=== PATIENT | female | born 1950 | race Caucasian/White ===

== ENCOUNTER 2016-11-18 10:17 | Emergency (ER) | payer OTHER ==
[2016-11-18 10:20] VITALS: BMI 35.2
--- NOTE | 2016-11-18 11:18 | PDOC ---
History of Present Illness - General Chief Complaint: Pain Stated Complaint: ABD PAIN Time Seen by Provider: 11/18/16 11:10 History Source: Patient Exam Limitations: No Limitations - History of Present Illness Initial Comments: 11/18/16 11:18 CHIEF COMPLAINT: Abdominal pain HISTORY OF PRESENT ILLNESS: This is a 66 year old female with no significant medical history who presents for evaluation of abdominal pain. She has been having left lower abdominal pain intermittently for about 3 weeks, and it became much worse today. She has been having chills. She denies nausea/vomiting/ diarrhea/constipation, dysuria, rectal bleeding, or any other symptoms. Vital signs on arrival are unremarkable. Patient does not currently follow with a PCP. REVIEW OF SYSTEMS: GENERAL/CONSTITUTIONAL: Chills, no fever. No weakness. No weight change. HEAD, EYES, EARS, NOSE AND THROAT: No change in vision. No ear pain or discharge. No sore throat. CARDIOVASCULAR: No chest pain or palpitations. RESPIRATORY: No cough, wheezing, or shortness of breath. GASTROINTESTINAL: See HPI GENITOURINARY: No dysuria, frequency, or change in urination. MUSCULOSKELETAL: No joint or muscle swelling or pain. No neck or back pain. SKIN: No rash or easy bruising. NEUROLOGIC: No headache, vertigo, loss of consciousness, or loss of sensation. PSYCHIATRIC: No depression or anxiety. ENDOCRINE: No increased thirst. No abnormal weight change. HEMATOLOGIC/LYMPHATIC: No anemia, easy bleeding, or history of blood clots. ALLERGIC/IMMUNOLOGIC: No hives or skin allergy. No latex allergy. PHYSICAL EXAM: GENERAL: The patient is awake, alert, and fully oriented, in no acute distress. ENT: Pupils equal, round and reactive to light, extraocular movements intact, sclera anicteric, conjunctiva clear. Neck supple. LUNGS: Clear to auscultation bilaterally. Normal excursion. No respiratory distress or use of accessory muscles. CV: RRR, S1/S2, no MRG. Cap refill < 2 sec. ABDOMEN: Soft, non-distended, tender to gentle palpation in LLQ. EXTREMITIES: Normal range of motion, no edema. NEUROLOGICAL: Normal speech, normal gait. CN II-XII grossly intact. PSYCH: Normal mood, normal affect. SKIN: Warm, dry, normal turgor, no rashes or lesions noted. Past History - Past Medical History Allergies/Adverse Reactions: Allergies Allergy/AdvReac Type Severity Reaction Status Date / Time No Known Allergies Allergy Verified 11/18/16 10:20 Home Medications: Ambulatory Orders NK [No Known Home Medication] 11/18/16 CVA: Yes Liver Disease: Yes (inflammed) Psychiatric Problems: Yes (forgetfulness) Other medical history: on neurontin - Psycho/Social/Smoking Cessation Hx Suicidal Ideation: No Smoking History: Never smoked Information on smoking cessation initiated: No Hx Alcohol Use: No Drug/Substance Use Hx: No Substance Use Type: None *Physical Exam - Vital Signs Last Vital Signs Temp Pulse Resp BP Pulse Ox 97.5 F L 70 17 127/74 97 11/18/16 10:18 11/18/16 10:18 11/18/16 10:18 11/18/16 10:18 11/18/16 10:18 ED Treatment Course - LABORATORY CBC & Chemistry Diagram: 11/18/16 11:50 11/18/16 11:50 Medical Decision Making - Medical Decision Making 11/18/16 13:12 A/P: 66 year old female with LLQ pain. 1. EKG 2. Cardiac and abdominal labs 3. CTAP with PO/IV contrast to rule out diverticulitis, abscess, perforation 4. Morphine 4mg IVP for pain 5. Reassess 11/18/16 13:41 WBC within normal limits at 8.4 AST/ALT mildly elevated at 44/110 Trace leukesterase; culture sent 11/18/16 15:18 CT reviewed and interpreted by radiology: there is diverticulitis of the sigmoid colon without perforation or abscess formation. Will treat with Levaquin/Flagyl and dc with close outpatient followup. Return precautions reviewed. *DC/Admit/Observation/Transfer Diagnosis at time of Disposition: Diverticulitis of intestine Qualifiers: Diverticulitis site: large intestine Diverticulitis bleeding: without bleeding Diverticulitis complication: without perforation or abscess Qualified Code(s): K57.32 - Diverticulitis of large intestine without perforation or abscess without bleeding - Discharge Dispostion Disposition: HOME Condition at time of disposition: Stable Admit: No - Referrals Referrals: Karon Caba MD [Staff Physician] - Call tomorrow (Train Dispatcher) Fozia Ruiz MD [Staff Physician] - Call tomorrow (Primary care) - Patient Instructions Printed Discharge Instructions: DI for Diverticulitis Additional Instructions: -Eat a liquid diet today and slowly start eating food again as you are feeling better -Take Levaquin and Flagyl (two antibiotics) as prescribed -Follow up with the registered dental assistant and a primary care doctor this week - referral enclosed -Return here for fevers, worsening abdominal pain, inability to keep down fluids , or any other concerning symptoms Print Language: MAORI
[2016-11-18 12:02] LABS: URINE APPEARANCE CLEAR; URINE BILIRUBIN NEGATIVE (NEGATIVE); URINE BLOOD NEGATIVE (NEGATIVE); URINE COLOR DKYELLOW; URINE GLUCOSE (UA) NEGATIVE (NEGATIVE); URINE KETONE NEGATIVE (NEGATIVE); URINE NITRITE NEGATIVE (NEGATIVE); URINE UROBILINOGEN NEGATIVE E.U./dl (0.2-1.0)
[2016-11-18 12:21] LABS: INR 1.14 (0.82-1.09); PROTHROMBIN TIME (PATIENT) 12.6 SEC (9.98-11.88)
[2016-11-18 12:29] LABS: ALBUMIN 3.8 g/dl (3.4-5.0); ANION GAP 8 (8-16); CALCIUM 9.9 mg/dL (8.5-10.1); CO2 31 mmol/L (21-32); COCKROFT - GAULT 104.6435; CREATININE 0.7 mg/dL (0.55-1.02); GLUCOSE,RANDOM 182 mg/dL (74-106); SGOT/AST 44 U/L (15-37); SGPT/ALT 110 U/L (12-78)
[2016-11-18 12:30] LABS: ALK PHOS 68 U/L (45-117); BILIRUBIN,TOTAL 0.6 mg/dL (0.2-1.0); TOT PROT 8.4 g/dl (6.4-8.2); TROPONIN I < 0.02 ng/ml (0.00-0.05)
--- NOTE | 2016-11-18 12:34 | PDOC ---
*Physical Exam - Vital Signs Last Vital Signs Temp Pulse Resp BP Pulse Ox 97.5 F L 70 17 127/74 97 11/18/16 10:18 11/18/16 10:18 11/18/16 10:18 11/18/16 10:18 11/18/16 10:18 - Physical Exam General Appearance: Yes: Nourished HEENT: positive: Normal ENT Inspection Neck: positive: Trachea midline Respiratory/Chest: positive: Lungs Clear, Normal Breath Sounds Cardiovascular: positive: Regular Rhythm, Regular Rate, S1, S2. negative: Edema Gastrointestinal/Abdominal: positive: Normal Bowel Sounds, Tender (llq ttp), Flat, Soft Musculoskeletal: positive: Normal Inspection. negative: CVA Tenderness Extremity: positive: Normal Capillary Refill Integumentary: positive: Normal Color, Dry, Warm Neurologic: positive: Fully Oriented, Alert, Normal Mood/Affect, Motor Strength 11/08 ED Treatment Course - LABORATORY CBC & Chemistry Diagram: 11/18/16 11:50 11/18/16 11:50 Medical Decision Making - Medical Decision Making 11/18/16 12:31 66 yo F w with left lower quadrant pain, no n/v //f/c. had bm last pm was normal. no urinary complaints. on exam llq ttp, general NAD. lungs CTAB no wheeze no crackles. cardiac RRR no m /r/g. abd soft llq ttp. no rebound no guarding. ext WWP . differential: colitis, diverticulitis, uti pyelo, constipation. mass. plan ct a/ p labs ua iv hydration and pain control. reassess. seen and examined wt angelina WILKINS, agree with plan. 12/25/16 10:33 *DC/Admit/Observation/Transfer Diagnosis at time of Disposition: Diverticulitis Qualifiers: Diverticulitis site: large intestine Diverticulitis bleeding: without bleeding Diverticulitis complication: without perforation or abscess Qualified Code(s): K57.32 - Diverticulitis of large intestine without perforation or abscess without bleeding - Discharge Dispostion Disposition: HOME - Prescriptions Prescriptions: Metronidazole [Flagyl -] 500 mg PO Q6H #28 tablet Levofloxacin [Levaquin] 750 mg PO DAILY #7 tab - Referrals Referrals: Fozia Ruiz MD [Staff Physician] - Call tomorrow (Primary care) Karon Caba MD [Staff Physician] - Call tomorrow (Civil Cadd Technician) - Patient Instructions Printed Discharge Instructions: DI for Diverticulitis Additional Instructions: -Eat a liquid diet today and slowly start eating food again as you are feeling better -Take Levaquin and Flagyl (two antibiotics) as prescribed -Follow up with the after school program coordinator and a primary care doctor this week - referral enclosed -Return here for fevers, worsening abdominal pain, inability to keep down fluids , or any other concerning symptoms Print Language: SLOVENIAN
[2016-11-18 12:35] LABS: BASOPHIL 0.6 % (0-2.0); EOSINOPHIL 1.1 % (0-4.5); MCH 27.9 pg (25.7-33.7); MCHC 33.2 g/dl (32.0-36.0); MEAN CELL VOLUME 84.1 fl (80-96); MEAN PLT VOLUME 8.1 fl (7.5-11.1); NEUTROPHILS 54.5 % (42.8-82.8); PLATELET COUNT 293 K/MM3 (134-434); RDW 14.6 % (11.6-15.6); WHITE BLOOD COUNT 8.4 K/mm3 (4.0-10.0)
[2016-11-18 12:47] LABS: URINE LEUK ESTERASE TRACE (NEGATIVE); URINE PROTEIN 1+ (NEGATIVE)
[2016-11-18] MEDS ORDERED: morphine CARPU-JECT 4 MG/1 ML DISP.SYRIN IVPUSH ONE (13:12)
[2016-11-18] MEDS ORDERED: morphine CARPU-JECT 4 MG/1 ML DISP.SYRIN ONE (13:27)
[2016-11-18] MEDS ORDERED: SODIUM CHLORIDE 1,000 ML IV SCH (13:45)
--- NOTE | 2016-11-18 14:07 | EKG ---
Test Reason : Blood Pressure : / mmHG Vent. Rate : 066 BPM Atrial Rate : 066 BPM P-R Int : 176 ms QRS Dur : 078 ms QT Int : 428 ms P-R-T Axes : 043 -11 -01 degrees QTc Int : 448 ms NORMAL SINUS RHYTHM NORMAL ECG NO PREVIOUS ECGS AVAILABLE Confirmed by CECY OLIVAS MD ([id number]) on 11/18/2016 2:06:47 PM Referred By: Confirmed By:CECY OLIVAS MD
[2016-11-18 14:51] LABS: URINE MUCUS FEW; URINE RBC 1 /hpf (0-3); URINE WBC 8 /hpf (3-5)
[2016-11-18] MEDS ORDERED: LEVOFLOXACIN 250 MG TABLET (FP) PO ONE (15:18)
[2016-11-18] MEDS ORDERED: metroNIDAZOLE 500 MG TABLET PO ONE (15:18)
[2016-11-18] MEDS ORDERED: LEVOFLOXACIN 500 MG TABLET (FP) ONE (15:33)
[2016-11-18] MEDS ORDERED: metroNIDAZOLE 250 MG TABLET ONE (15:33)
[2016-11-18] MEDS ORDERED: LEVOFLOXACIN 250 MG TABLET (FP) ONE (15:33)
[2016-11-18 16:09] VITALS: BP 102/68; PULSE 69; TEMP 97.8
== END 2016-11-18 16:09 | disposition home or self-care (01) ==
LOC: JER 10:17
PROC: 3E0337Z Introduction of Electrolytic and Water Balance Substance into Peripheral Vein, Percutaneous Approach (ICD-10-PCS; principal; 2016-11-18)
PROC: 3E033NZ Introduction of Analgesics, Hypnotics, Sedatives into Peripheral Vein, Percutaneous Approach (ICD-10-PCS; 2016-11-18)
DX: K57.20 Diverticulitis of large intestine with perforation and abscess without bleeding (principal); Z86.73 Personal history of transient ischemic attack (TIA), and cerebral infarction without residual deficits
CPT/HCPCS: 36415; 74177-TC; 80053; 81003; 81015; 82550; 83690; 84484; 85025; 85610; 87086; 87186; 93005; 93010; 96361; 96374; 99284-25; Q9967

== ENCOUNTER 2020-07-18 16:56 | Inpatient (IN) | payer OTHER ==
[2020-07-18] MEDS ORDERED: ACETAMINOPHEN 325 MG TABLET (FP) PO ONE (18:29)
[2020-07-18] MEDS ORDERED: SODIUM CHLORIDE 1,000 ML IV STA (18:29)
[2020-07-18 18:38] LABS: PH,URINE 5.5 (5.0-8.0); URINE APPEARANCE Clear; URINE BILIRUBIN Negative (NEGATIVE); URINE COLOR Yellow; URINE GLUCOSE (UA) Trace (NEGATIVE); URINE KETONE Trace (NEGATIVE); URINE LEUK ESTERASE Negative (NEGATIVE); URINE NITRITE Negative (NEGATIVE); URINE PROTEIN 1+ (NEGATIVE); URINE UROBILINOGEN 0.2 mg/dL (0.2-1.0)
[2020-07-18] MEDS ORDERED: ACETAMINOPHEN 325 MG TABLET (FP) ONE (18:46)
[2020-07-18 18:58] LABS: BASO % 0.5 % (0-2.0); HEMATOCRIT 43.8 % (32.4-45.2); HEMOGLOBIN 14.6 GM/dL (10.7-15.3); LYMPH % 33.2 % (8-40); MCH 27.4 pg (25.7-33.7); MCHC 33.4 g/dl (32.0-36.0); MEAN PLT VOLUME 8.6 fl (7.5-11.1); MONO % 8.9 % (3.8-10.2); NEUT % 57.4 % (42.8-82.8); PLATELET COUNT 227 K/MM3 (134-434); RBC 5.33 M/mm3 (3.60-5.2); RDW 13.7 % (11.6-15.6); WHITE BLOOD COUNT 5.8 K/mm3 (4.0-10.0)
[2020-07-18 19:14] LABS: CHLORIDE 99 mmol/L (98-107); POTASSIUM 4.6 mmol/L (3.5-5.1); SODIUM 131 mmol/L (136-145)
[2020-07-18 19:16] LABS: CALCIUM 8.9 mg/dL (8.5-10.1)
[2020-07-18 19:17] LABS: ALBUMIN 3.3 g/dl (3.4-5.0); ANION GAP 6 MMOL/L (8-16); CO2 27 mmol/L (21-32); GLUCOSE,RANDOM 182 mg/dL (74-106)
[2020-07-18 19:20] LABS: BILIRUBIN,TOTAL 0.4 mg/dL (0.2-1); CREATININE 0.7 mg/dL (0.55-1.3); SGOT/AST 121 U/L (15-37); SGPT/ALT 130 U/L (13-61); TOT PROT 7.9 g/dl (6.4-8.2)
[2020-07-18 19:23] LABS: ALK PHOS 59 U/L (45-117)
[2020-07-18 20:02] LABS: URINE BACTERIA FEW /hpf (NEGATIVE); URINE RBC 0-3 /uL (0-23.9); URINE WBC 0-3 /uL (0-25.8)
[2020-07-18] MEDS ORDERED: BAMLANIVIMAB 700 MG in SODIUM CHLORIDE 180 ML IVPB ONE (21:30)
[2020-07-18] MEDS ORDERED: PT OWN MED DRAWER 7, Y5N ONE (22:51)
[2020-07-19] MEDS ORDERED: DEXAMETHASONE SOD PHOSPHATE 4 MG/1 ML VIAL IVPUSH ONE (04:16)
[2020-07-19] MEDS ORDERED: ACETAMINOPHEN 325 MG TABLET (FP) PO PRN (04:51)
[2020-07-19] MEDS ORDERED: SODIUM CHLORIDE 1,000 ML IV SCH (05:00)
[2020-07-19] MEDS ORDERED: CIPROFLOXACIN 500 MG TABLET (RESTRICTED TO ID) PO SCH ×3 (05:21→10:00)
[2020-07-19] MEDS ORDERED: DEXAMETHASONE SOD PHOSPHATE 10 MG/1 ML VIAL ONE (05:55)
[2020-07-19] MEDS ORDERED: metroNIDAZOLE 250 MG TABLET ONE (05:55)
[2020-07-19] MEDS ORDERED: HEPARIN NA (PORCINE) 5,000 UNITS/ML 1ML VIAL SQ SCH (06:00)
[2020-07-19] MEDS ORDERED: metroNIDAZOLE 250 MG TABLET PO SCH (06:00)
[2020-07-19 07:52] LABS: BASO % 0.3 % (0-2.0); HEMOGLOBIN 14.1 GM/dL (10.7-15.3); LYMPH % 14.3 % (8-40); MCHC 32.9 g/dl (32.0-36.0); MEAN CELL VOLUME 82.1 fl (80-96); MEAN PLT VOLUME 8.9 fl (7.5-11.1); MONO % 7.1 % (3.8-10.2); NEUT % 78.3 % (42.8-82.8); PLATELET COUNT 201 K/MM3 (134-434); RBC 5.23 M/mm3 (3.60-5.2); RDW 13.6 % (11.6-15.6); WHITE BLOOD COUNT 7.4 K/mm3 (4.0-10.0)
[2020-07-19 08:07] LABS: CHLORIDE 101 mmol/L (98-107); POTASSIUM 3.8 mmol/L (3.5-5.1); SODIUM 133 mmol/L (136-145)
[2020-07-19 08:10] LABS: CALCIUM 8.6 mg/dL (8.5-10.1)
[2020-07-19 08:11] LABS: ALBUMIN 3.2 g/dl (3.4-5.0); ANION GAP 8 MMOL/L (8-16); BLOOD UREA NITROGEN 8.3 mg/dL (7-18); CO2 24 mmol/L (21-32); GLUCOSE,RANDOM 133 mg/dL (74-106); MAGNESIUM 1.9 mg/dL (1.8-2.4)
[2020-07-19 08:13] LABS: CREATININE 0.5 mg/dL (0.55-1.3)
[2020-07-19 08:14] LABS: PHOSPHOROUS 2.3 mg/dL (2.5-4.9); SGOT/AST 84 U/L (15-37); SGPT/ALT 112 U/L (13-61)
[2020-07-19 08:15] LABS: BILIRUBIN,TOTAL 0.4 mg/dL (0.2-1); TOT PROT 7.5 g/dl (6.4-8.2)
[2020-07-19 08:16] LABS: ALK PHOS 60 U/L (45-117)
[2020-07-19 08:18] LABS: LDH 266 U/L (84-246)
[2020-07-19] MEDS ORDERED: ASCORBIC ACID 500 MG TABLET (FP) ONE (09:55)
[2020-07-19] MEDS ORDERED: CHOLECALCIFEROL (VIT D3) 1,000 UNIT (25 MCG) TABLET ONE (09:56)
[2020-07-19] MEDS ORDERED: ZINC SULFATE 220 MG CAPSULE (FP) ONE (09:56)
[2020-07-19] MEDS: ASCORBIC ACID 500 MG TABLET (FP) PO SCH ×2 (10:17→21:02)
[2020-07-19] MEDS: ZINC SULFATE 220 MG CAPSULE (FP) PO SCH (10:17)
[2020-07-19] MEDS: CHOLECALCIFEROL (VIT D3) 400 UNIT (10 MCG) TABLET PO SCH (10:17)
[2020-07-19] MEDS: APIXABAN 5 MG TABLET PO SCH ×2 (12:26→21:02)
[2020-07-19 12:47] VITALS: BMI 33.0
[2020-07-19] MEDS ORDERED: NAPH,MB-DB/K PH,MBDB POWDER PACKET PO ONE (15:40)
[2020-07-20 07:45] LABS: BASO % 0.2 % (0-2.0); HEMATOCRIT 40.6 % (32.4-45.2); HEMOGLOBIN 13.9 GM/dL (10.7-15.3); LYMPH % 31.6 % (8-40); MCH 27.8 pg (25.7-33.7); MCHC 34.2 g/dl (32.0-36.0); MEAN CELL VOLUME 81.2 fl (80-96); MEAN PLT VOLUME 8.3 fl (7.5-11.1); NEUT % 57.2 % (42.8-82.8); PLATELET COUNT 224 K/MM3 (134-434); RDW 13.5 % (11.6-15.6); WHITE BLOOD COUNT 4.9 K/mm3 (4.0-10.0)
[2020-07-20 08:00] LABS: POTASSIUM 3.8 mmol/L (3.5-5.1)
[2020-07-20 08:03] LABS: BLOOD UREA NITROGEN 10.8 mg/dL (7-18); MAGNESIUM 2.1 mg/dL (1.8-2.4)
[2020-07-20 08:04] LABS: CREATININE 0.6 mg/dL (0.55-1.3)
[2020-07-20 08:05] LABS: PHOSPHOROUS 3.2 mg/dL (2.5-4.9)
[2020-07-20 08:07] LABS: BILIRUBIN,TOTAL 0.4 mg/dL (0.2-1); TOT PROT 7.2 g/dl (6.4-8.2)
[2020-07-20] MEDS: CHOLECALCIFEROL (VIT D3) 400 UNIT (10 MCG) TABLET PO SCH (09:40)
[2020-07-20] MEDS: ZINC SULFATE 220 MG CAPSULE (FP) PO SCH (09:41)
[2020-07-20] MEDS: APIXABAN 5 MG TABLET PO SCH ×2 (09:41→21:25)
[2020-07-20] MEDS: ASCORBIC ACID 500 MG TABLET (FP) PO SCH ×2 (09:41→21:25)
[2020-07-20] MEDS ORDERED: PNEUMOC 13-VAL CONJ-DIP CRM/PF 0.5 ML DISP.SYRIN IM ONE (10:00)
[2020-07-20] MEDS ORDERED: DEXAMETHASONE SOD PHOSPHATE 4 MG/1 ML VIAL IVPUSH ONE (10:00)
[2020-07-20] MEDS ORDERED: FLU VACCINE (FLULAVAL) PF 60 MCG/0.5 ML SYRINGE 2020-2021 IM ONE (10:00)
[2020-07-20] MEDS: INSULIN SLIDING SCALE (NOVOLOG) 1 VIAL SQ SCH ×2 (16:51→21:32)
[2020-07-21] MEDS: INSULIN SLIDING SCALE (NOVOLOG) 1 VIAL SQ SCH ×4 (06:36→21:03)
[2020-07-21 08:08] LABS: HEMATOCRIT 41.6 % (32.4-45.2); HEMOGLOBIN 14.1 GM/dL (10.7-15.3); MCH 27.4 pg (25.7-33.7); MCHC 33.9 g/dl (32.0-36.0); MEAN CELL VOLUME 80.9 fl (80-96); MEAN PLT VOLUME 8.6 fl (7.5-11.1); PLATELET COUNT 262 K/MM3 (134-434); RBC 5.14 M/mm3 (3.60-5.2); RDW 13.7 % (11.6-15.6); WHITE BLOOD COUNT 6.1 K/mm3 (4.0-10.0)
[2020-07-21 08:25] LABS: POTASSIUM 4.1 mmol/L (3.5-5.1)
[2020-07-21 08:31] LABS: CALCIUM 9.4 mg/dL (8.5-10.1); MAGNESIUM 2.1 mg/dL (1.8-2.4)
[2020-07-21 08:33] LABS: BLOOD UREA NITROGEN 14.2 mg/dL (7-18); CREATININE 0.6 mg/dL (0.55-1.3)
[2020-07-21 08:36] LABS: BILIRUBIN,TOTAL 0.6 mg/dL (0.2-1)
[2020-07-21] MEDS: DEXAMETHASONE SOD PHOSPHATE 4 MG/1 ML VIAL IVPUSH SCH (09:41)
[2020-07-21] MEDS: ASCORBIC ACID 500 MG TABLET (FP) PO SCH ×2 (09:43→20:59)
[2020-07-21] MEDS: APIXABAN 5 MG TABLET PO SCH (09:43)
[2020-07-21] MEDS: CHOLECALCIFEROL (VIT D3) 400 UNIT (10 MCG) TABLET PO SCH (09:44)
[2020-07-21] MEDS: ZINC SULFATE 220 MG CAPSULE (FP) PO SCH (09:44)
[2020-07-21 10:18] LABS: ERYTHROCYTE SEDIMENTATION RATE 39 mm/hr (0-30)
[2020-07-21] MEDS ORDERED: REMDESIVIR 200 MG in SODIUM CHLORIDE 210 ML IVPB ONE ×2 (13:04→15:00)
[2020-07-22] MEDS: INSULIN SLIDING SCALE (NOVOLOG) 1 VIAL SQ SCH ×4 (06:10→21:30)
[2020-07-22 07:16] LABS: HEMATOCRIT 42.2 % (32.4-45.2); HEMOGLOBIN 14.1 GM/dL (10.7-15.3); MCH 27.1 pg (25.7-33.7); MCHC 33.4 g/dl (32.0-36.0); MEAN CELL VOLUME 81.2 fl (80-96); MEAN PLT VOLUME 8.3 fl (7.5-11.1); PLATELET COUNT 288 K/MM3 (134-434); RDW 13.4 % (11.6-15.6); WHITE BLOOD COUNT 6.8 K/mm3 (4.0-10.0)
[2020-07-22 07:50] LABS: POTASSIUM 3.9 mmol/L (3.5-5.1)
[2020-07-22 08:14] LABS: BLOOD UREA NITROGEN 13.4 mg/dL (7-18); CALCIUM 9.3 mg/dL (8.5-10.1); MAGNESIUM 2.1 mg/dL (1.8-2.4)
[2020-07-22 08:15] LABS: CREATININE 0.5 mg/dL (0.55-1.3)
[2020-07-22 08:17] LABS: BILIRUBIN,TOTAL 0.5 mg/dL (0.2-1); PHOSPHOROUS 3.2 mg/dL (2.5-4.9)
[2020-07-22 09:08] LABS: ERYTHROCYTE SEDIMENTATION RATE 30 mm/hr (0-30)
[2020-07-22] MEDS: ENOXAPARIN NA (PORCINE) 40 MG/0.4 ML DISP.SYRIN SQ SCH (09:49)
[2020-07-22] MEDS: ASCORBIC ACID 500 MG TABLET (FP) PO SCH ×2 (09:49→21:28)
[2020-07-22] MEDS: CHOLECALCIFEROL (VIT D3) 400 UNIT (10 MCG) TABLET PO SCH (09:49)
[2020-07-22] MEDS: ZINC SULFATE 220 MG CAPSULE (FP) PO SCH (09:50)
[2020-07-22] MEDS: DEXAMETHASONE SOD PHOSPHATE 4 MG/1 ML VIAL IVPUSH SCH (09:50)
[2020-07-22] MEDS: REMDESIVIR 100 MG in SODIUM CHLORIDE 230 ML IVPB SCH (14:49)
[2020-07-22] MEDS ORDERED: REMDESIVIR 100 MG in SODIUM CHLORIDE 230 ML IVPB SCH (15:00)
[2020-07-23] MEDS: INSULIN SLIDING SCALE (NOVOLOG) 1 VIAL SQ SCH ×4 (06:06→21:48)
[2020-07-23 08:47] LABS: BASO % 0.5 % (0-2.0); HEMOGLOBIN 15.4 GM/dL (10.7-15.3); LYMPH % 40.3 % (8-40); MCH 27.8 pg (25.7-33.7); MCHC 34.1 g/dl (32.0-36.0); MEAN CELL VOLUME 81.5 fl (80-96); MEAN PLT VOLUME 8.5 fl (7.5-11.1); MONO % 9.7 % (3.8-10.2); NEUT % 49.5 % (42.8-82.8); PLATELET COUNT 343 K/MM3 (134-434); RBC 5.52 M/mm3 (3.60-5.2); RDW 13.5 % (11.6-15.6)
[2020-07-23 09:08] LABS: POTASSIUM 4.1 mmol/L (3.5-5.1)
[2020-07-23 09:09] LABS: CALCIUM 9.2 mg/dL (8.5-10.1)
[2020-07-23 09:10] LABS: ALBUMIN 3.3 g/dl (3.4-5.0); BLOOD UREA NITROGEN 16.1 mg/dL (7-18)
[2020-07-23 09:13] LABS: CREATININE 0.7 mg/dL (0.55-1.3)
[2020-07-23 09:15] LABS: BILIRUBIN,TOTAL 0.3 mg/dL (0.2-1); TOT PROT 7.8 g/dl (6.4-8.2)
[2020-07-23] MEDS: ASCORBIC ACID 500 MG TABLET (FP) PO SCH ×2 (10:44→21:48)
[2020-07-23] MEDS: CHOLECALCIFEROL (VIT D3) 400 UNIT (10 MCG) TABLET PO SCH (10:44)
[2020-07-23] MEDS: DEXAMETHASONE SOD PHOSPHATE 4 MG/1 ML VIAL IVPUSH SCH (10:44)
[2020-07-23] MEDS: ENOXAPARIN NA (PORCINE) 40 MG/0.4 ML DISP.SYRIN SQ SCH (10:44)
[2020-07-23] MEDS: ZINC SULFATE 220 MG CAPSULE (FP) PO SCH (10:44)
[2020-07-23] MEDS: REMDESIVIR 100 MG in SODIUM CHLORIDE 230 ML IVPB SCH (16:15)
[2020-07-23] MEDS ORDERED: INSULIN (NOVOLOG) ASPART 100 UNITS/ML 10ML VIAL ONE (21:33)
[2020-07-24] MEDS: INSULIN SLIDING SCALE (NOVOLOG) 1 VIAL SQ SCH ×4 (05:59→21:06)
[2020-07-24] MEDS: CHOLECALCIFEROL (VIT D3) 400 UNIT (10 MCG) TABLET PO SCH (10:04)
[2020-07-24] MEDS: ENOXAPARIN NA (PORCINE) 40 MG/0.4 ML DISP.SYRIN SQ SCH (10:05)
[2020-07-24] MEDS: DEXAMETHASONE SOD PHOSPHATE 4 MG/1 ML VIAL IVPUSH SCH (10:05)
[2020-07-24] MEDS: ZINC SULFATE 220 MG CAPSULE (FP) PO SCH (10:05)
[2020-07-24] MEDS: ASCORBIC ACID 500 MG TABLET (FP) PO SCH ×2 (10:05→21:05)
[2020-07-24] MEDS ORDERED: INSULIN (NOVOLOG) ASPART 100 UNITS/ML 10ML VIAL ONE (10:12)
[2020-07-24] MEDS ORDERED: DOCUSATE SODIUM 100 MG CAPSULE (FP) PO PRN (14:12)
[2020-07-24] MEDS: REMDESIVIR 100 MG in SODIUM CHLORIDE 230 ML IVPB SCH (16:13)
[2020-07-25] MEDS: INSULIN SLIDING SCALE (NOVOLOG) 1 VIAL SQ SCH ×3 (06:49→16:39)
[2020-07-25 07:55] LABS: HEMATOCRIT 42.2 % (32.4-45.2); HEMOGLOBIN 14.5 GM/dL (10.7-15.3); MCH 27.6 pg (25.7-33.7); MCHC 34.3 g/dl (32.0-36.0); MEAN CELL VOLUME 80.5 fl (80-96); MEAN PLT VOLUME 8.3 fl (7.5-11.1); PLATELET COUNT 342 K/MM3 (134-434); RBC 5.24 M/mm3 (3.60-5.2); RDW 13.5 % (11.6-15.6)
[2020-07-25 08:58] LABS: ALBUMIN 2.9 g/dl (3.4-5.0); BLOOD UREA NITROGEN 15.9 mg/dL (7-18); CALCIUM 9.1 mg/dL (8.5-10.1); MAGNESIUM 2.2 mg/dL (1.8-2.4)
[2020-07-25 09:01] LABS: CREATININE 0.6 mg/dL (0.55-1.3); PHOSPHOROUS 3.1 mg/dL (2.5-4.9)
[2020-07-25 09:03] LABS: BILIRUBIN,TOTAL 0.4 mg/dL (0.2-1); TOT PROT 6.7 g/dl (6.4-8.2)
[2020-07-25] MEDS: ENOXAPARIN NA (PORCINE) 40 MG/0.4 ML DISP.SYRIN SQ SCH (09:32)
[2020-07-25] MEDS: DEXAMETHASONE SOD PHOSPHATE 4 MG/1 ML VIAL IVPUSH SCH (09:33)
[2020-07-25] MEDS: ZINC SULFATE 220 MG CAPSULE (FP) PO SCH (09:34)
[2020-07-25] MEDS: ASCORBIC ACID 500 MG TABLET (FP) PO SCH (09:34)
[2020-07-25] MEDS: CHOLECALCIFEROL (VIT D3) 400 UNIT (10 MCG) TABLET PO SCH (09:34)
[2020-07-25 10:13] LABS: ERYTHROCYTE SEDIMENTATION RATE 48 mm/hr (0-30)
[2020-07-25 14:48] VITALS: BP 95/55; PULSE 53; TEMP 98.2
[2020-07-25] MEDS: REMDESIVIR 100 MG in SODIUM CHLORIDE 230 ML IVPB SCH (14:58)
== END 2020-07-25 19:25 | disposition home or self-care (01) | DRG 177 ==
LOC: JER 16:56 → JERBED 07-19 03:43 → J7W 07-19 10:45
PROVIDERS: ADMIT Hospitalist; ATTEND Internal Medicine
PROC: XW033F6 Introduction of Bamlanivimab Monoclonal Antibody into Peripheral Vein, Percutaneous Approach, New Technology Group 6 (ICD-10-PCS; principal; 2020-07-21)
PROC: XW033E5 Introduction of Remdesivir Anti-infective into Peripheral Vein, Percutaneous Approach, New Technology Group 5 (ICD-10-PCS; 2020-07-21)
DX: U07.1 COVID-19 (principal); J12.82 Pneumonia due to coronavirus disease 2019; J96.01 Acute respiratory failure with hypoxia; A08.39 Other viral enteritis; K57.32 Diverticulitis of large intestine without perforation or abscess without bleeding; E87.1 Hypo-osmolality and hyponatremia; E11.65 Type 2 diabetes mellitus with hyperglycemia; E66.9 Obesity, unspecified; Z68.33 Body mass index [BMI] 33.0-33.9, adult; I10 Essential (primary) hypertension; K76.89 Other specified diseases of liver; R74.01 Elevation of levels of liver transaminase levels; K57.90 Diverticulosis of intestine, part unspecified, without perforation or abscess without bleeding
CPT/HCPCS: 36415; 74177-TC; 80053; 80061; 81003; 82728; 82962; 83036; 83615; 83721; 83735; 84100; 84484; 85025; 85027; 85379; 85651; 86140; 87086; 87426; 87804; 93005; 93010; 94761; 99285-25; C9399; M0239; Q0239; Q9967

== ENCOUNTER 2024-01-07 15:12 | Inpatient (IN) | payer OTHER ==
[2024-01-07] MEDS ORDERED: ACETAMINOPHEN INJECTION 100 ML IVPB ONE (16:54)
[2024-01-07] MEDS: SODIUM CHLORIDE 1,000 ML IV STA ×2 (17:11→22:04)
[2024-01-07] MEDS: ACETAMINOPHEN 1000 MG/100 ML BAG IVPB ONE ×2 (17:11→23:16)
[2024-01-07 17:17] LABS: VENOUS BASE EXCESS -3.3 mmol/L (-2-2); VENOUS O2 SATURATION 63.5 % (70-80); VENOUS PCO2 39.5 mmHg (38-52); VENOUS PH 7.359 (7.310-7.410)
[2024-01-07 17:30] LABS: BASO % 0.4 % (0-2.0); HEMATOCRIT 43.6 % (32.4-45.2); HEMOGLOBIN 14.3 GM/dL (10.7-15.3); LYMPH % 10.1 % (8-40); MCH 27.1 pg (25.7-33.7); MCHC 32.8 g/dl (32.0-36.0); MEAN CELL VOLUME 82.7 fl (80-96); MONO % 9.5 % (3.8-10.2); PLATELET COUNT 173 10^3/uL (134-434); RBC 5.27 M/mm3 (3.60-5.2); RDW 15.1 % (11.6-15.6); WHITE BLOOD COUNT 15.2 K/mm3 (4.0-10.0)
[2024-01-07 17:35] LABS: POTASSIUM 3.9 mmol/L (3.5-5.1)
[2024-01-07 17:37] LABS: CALCIUM 9.6 mg/dL (8.5-10.1)
[2024-01-07 17:38] LABS: ALBUMIN 3.4 g/dl (3.4-5.0); BLOOD UREA NITROGEN 17.6 mg/dL (7-18); MAGNESIUM 2.2 mg/dL (1.8-2.4)
[2024-01-07 17:41] LABS: CREATININE 0.7 mg/dL (0.55-1.3)
[2024-01-07 17:43] LABS: TOT PROT 8.2 g/dl (6.4-8.2)
[2024-01-07 18:51] LABS: PH,URINE 5.5 (5.0-8.0); URINE APPEARANCE TURBID; URINE BILIRUBIN NEGATIVE (NEGATIVE); URINE COLOR YELLOW; URINE GLUCOSE (UA) 3+ (NEGATIVE); URINE KETONE 2+ (NEGATIVE); URINE LEUK ESTERASE 2+ (NEGATIVE); URINE NITRITE NEGATIVE (NEGATIVE); URINE PROTEIN 1+ (NEGATIVE); URINE UROBILINOGEN 0.2 mg/dL (0.2-1.0)
[2024-01-07 19:18] LABS: URINE RBC 44.5 /uL (0-23.9); URINE WBC 3312.9 /uL (0-25.8)
[2024-01-07 19:19] LABS: EPI CELLS NONE SEEN /uL (0-25.1); HYALINE CASTS NONE SEEN /uL (0-3.1); YEAST NONE SEEN (NEGATIVE)
[2024-01-07 21:26] LABS: LACTIC ACID 2.2 mmol/L (0.4-2.0)
[2024-01-07] MEDS: CEFTRIAXONE 1,000 MG in DEXTROSE 5%-WATER - 50 ML IVPB ONE (22:05)
[2024-01-07 22:33] LABS: LACTIC ACID 2.7 mmol/L (0.4-2.0)
[2024-01-07 23:04] VITALS: BMI 28.5
[2024-01-08] MEDS: DOXYCYCLINE INJECTION 100 MG in DEXTROSE 5%-WATER 100 ML IVPB SCH (00:23)
[2024-01-08] MEDS: SODIUM CHLORIDE 1,000 ML IV SCH ×2 (00:23→03:00)
[2024-01-08] MEDS ORDERED: methylPREDNISolone NA SUCC 40 MG/1 ML VIAL IVPUSH SCH ×2 (00:31→10:00)
[2024-01-08] MEDS: ALBUTEROL SO4 2.5/IPRATROPIUM 0.5 INH SOL 3 ML VIAL.NEB. NEB ONE (01:15)
[2024-01-08 01:23] LABS: ALLENS TEST POSITIVE; ARTERIAL BLD GAS O2 SATURATION 94.4 % (95-98); ARTERIAL BLOOD GAS BASE EXCESS -5.5 mmol/L (-2-2); ARTERIAL BLOOD GAS PO2 64.8 mmHg (80-100); ARTERIAL BLOOD GAS pH 7.472 (7.350-7.450)
[2024-01-08] MEDS: INSULIN ASPART SLIDING SCALE (NOVOLOG) 1 VIAL SQ SCH (06:13)
[2024-01-08] MEDS ORDERED: INSULIN ASPART SLIDING SCALE (NOVOLOG) 1 VIAL SQ SCH (07:00)
[2024-01-08 08:24] LABS: POTASSIUM 3.8 mmol/L (3.5-5.1)
[2024-01-08 08:27] LABS: ALBUMIN 2.8 g/dl (3.4-5.0); BASO % 0.1 % (0-2.0); BLOOD UREA NITROGEN 20.6 mg/dL (7-18); CALCIUM 9.1 mg/dL (8.5-10.1); HEMATOCRIT 38.6 % (32.4-45.2); MCH 27.6 pg (25.7-33.7); MCHC 33.7 g/dl (32.0-36.0); MEAN PLT VOLUME 8.3 fl (7.5-11.1); MONO % 8.6 % (3.8-10.2); NEUT % 81.3 % (42.8-82.8); PLATELET COUNT 170 10^3/uL (134-434); RDW 15.2 % (11.6-15.6); WHITE BLOOD COUNT 11.1 K/mm3 (4.0-10.0)
[2024-01-08 08:28] LABS: MAGNESIUM 2.1 mg/dL (1.8-2.4)
[2024-01-08 08:30] LABS: CREATININE 0.6 mg/dL (0.55-1.3); PHOSPHOROUS 3.4 mg/dL (2.5-4.9)
[2024-01-08 08:31] LABS: TOT PROT 7.1 g/dl (6.4-8.2)
[2024-01-08 08:32] LABS: BILIRUBIN,TOTAL 0.7 mg/dL (0.2-1)
[2024-01-08] MEDS ORDERED: CEFTRIAXONE 1 GM in DEXTROSE 5%-WATER - 50 ML IVPB SCH (10:00)
[2024-01-08] MEDS: ENOXAPARIN NA (PORCINE) 40 MG/0.4 ML DISP.SYRIN SQ SCH (10:01)
[2024-01-08] MEDS: CEFTRIAXONE 2 GM in DEXTROSE 5%-WATER 100 ML IVPB SCH (10:01)
[2024-01-08] MEDS: LACTATED RINGERS SOLUTION 1,000 ML/1,000 ML INFUS.BAG IV SCH (10:57)
[2024-01-08] MEDS: ACETAMINOPHEN 1000 MG/100 ML BAG IVPB PRN (11:41)
[2024-01-08] MEDS: NYSTATIN POWDER 100,000 UNITS/GM - 15 GM TOPICAL POWDER TP SCH (13:13)
[2024-01-08] MEDS: POLYETHYLENE GLYCOL (HEALTHYLAX) 3350 17 GM PACKET PO SCH (13:13)
[2024-01-08] MEDS: IBUPROFEN 600 MG TABLET (FP) PO ONE (18:42)
[2024-01-09] MEDS ORDERED: PIPERACILLIN/TAZOB 4.5 GM 4.5 GM in DEXTROSE 5%-WATER 100 ML IVPB SCH (08:45)
[2024-01-09] MEDS: PIPERACILLIN/TAZOB 4.5 GM 4.5 GM in DEXTROSE 5%-WATER 100 ML IVPB SCH (10:27)
[2024-01-09 10:30] LABS: BASO % 0.2 % (0-2.0); HEMATOCRIT 37.6 % (32.4-45.2); HEMOGLOBIN 12.9 GM/dL (10.7-15.3); LYMPH % 10.4 % (8-40); MCH 27.3 pg (25.7-33.7); MCHC 34.3 g/dl (32.0-36.0); MEAN CELL VOLUME 79.5 fl (80-96); MEAN PLT VOLUME 8.1 fl (7.5-11.1); MONO % 8.5 % (3.8-10.2); NEUT % 80.9 % (42.8-82.8); PLATELET COUNT 178 10^3/uL (134-434); RBC 4.73 M/mm3 (3.60-5.2); RDW 15.3 % (11.6-15.6)
[2024-01-09 10:53] LABS: POTASSIUM 3.2 mmol/L (3.5-5.1)
[2024-01-09 10:54] LABS: ALBUMIN 2.6 g/dl (3.4-5.0)
[2024-01-09 10:56] LABS: CALCIUM 8.9 mg/dL (8.5-10.1)
[2024-01-09 10:57] LABS: MAGNESIUM 1.8 mg/dL (1.8-2.4)
[2024-01-09 11:00] LABS: CREATININE 0.4 mg/dL (0.55-1.3); PHOSPHOROUS 1.6 mg/dL (2.5-4.9)
[2024-01-09 11:01] LABS: BILIRUBIN,TOTAL 0.6 mg/dL (0.2-1); TOT PROT 6.4 g/dl (6.4-8.2)
[2024-01-09] MEDS: NAPH,MB-DB/K PH,MBDB POWDER PACKET PO SCH (14:17)
[2024-01-09] MEDS: POTASSIUM CHLORIDE ORAL LIQUID 20 MEQ/15 ML PO ONE (14:17)
[2024-01-09] MEDS: ERTAPENEM SODIUM 1 GM in SODIUM CHLORIDE 50 ML IVPB SCH (14:17)
[2024-01-10 07:46] LABS: CALCIUM 8.6 mg/dL (8.5-10.1)
[2024-01-10 07:48] LABS: ALBUMIN 2.3 g/dl (3.4-5.0); BLOOD UREA NITROGEN 10.2 mg/dL (7-18); MAGNESIUM 1.7 mg/dL (1.8-2.4)
[2024-01-10 07:51] LABS: CREATININE 0.4 mg/dL (0.55-1.3); PHOSPHOROUS 2.1 mg/dL (2.5-4.9)
[2024-01-10 07:52] LABS: BASO % 0.2 % (0-2.0); BILIRUBIN,TOTAL 0.5 mg/dL (0.2-1); HEMATOCRIT 38.6 % (32.4-45.2); HEMOGLOBIN 13.4 GM/dL (10.7-15.3); LYMPH % 22.3 % (8-40); MCH 27.2 pg (25.7-33.7); MCHC 34.8 g/dl (32.0-36.0); MEAN CELL VOLUME 78.1 fl (80-96); MEAN PLT VOLUME 8.2 fl (7.5-11.1); MONO % 12.7 % (3.8-10.2); NEUT % 64.8 % (42.8-82.8); PLATELET COUNT 194 10^3/uL (134-434); RBC 4.95 M/mm3 (3.60-5.2); RDW 15.4 % (11.6-15.6); TOT PROT 6.1 g/dl (6.4-8.2); WHITE BLOOD COUNT 6.6 K/mm3 (4.0-10.0)
[2024-01-10 10:18] VITALS: RESP 18
[2024-01-10] MEDS: ONDANSETRON 4 MG/2 ML VIAL IVPUSH PRN (15:37)
[2024-01-11] MEDS: MAGNESIUM SULFATE IN WATER 2 GM/50 ML IVPB IVPB ONE (07:04)
[2024-01-11 08:16] LABS: BLOOD UREA NITROGEN 9.4 mg/dL (7-18); CALCIUM 8.5 mg/dL (8.5-10.1)
[2024-01-11 08:19] LABS: CREATININE 0.4 mg/dL (0.55-1.3)
[2024-01-11 08:20] LABS: PHOSPHOROUS 2.4 mg/dL (2.5-4.9)
[2024-01-11 09:04] LABS: HEMOGLOBIN 12.8 GM/dL (10.7-15.3); MCH 26.8 pg (25.7-33.7); MCHC 33.8 g/dl (32.0-36.0); MEAN CELL VOLUME 79.4 fl (80-96); MEAN PLT VOLUME 8.4 fl (7.5-11.1); PLATELET COUNT 171 10^3/uL (134-434); RBC 4.79 M/mm3 (3.60-5.2); RDW 15.1 % (11.6-15.6); WHITE BLOOD COUNT 7.2 K/mm3 (4.0-10.0)
[2024-01-11] MEDS: POTASSIUM CHLORIDE TABS 10 MEQ TABLET.ER (FP) PO SCH (10:04)
[2024-01-11 10:06] LABS: ANISOCYTOSIS 0; HELMET CELLS 0; HOWELL-JOLLY BODIES 0; MACROCYTOSIS 0; OVALOCYTE 0; ROULEAU 0; SICKELED CELLS 0; TARGET CELLS 0; TEAR DROP CELLS 0; TOXIC GRANULATION 0
[2024-01-11] MEDS: POTASSIUM CHLORIDE TABS 20 MEQ TABLET.ER (FP) PO SCH (21:17)
[2024-01-11] MEDS: POLYETHYLENE GLYCOL (HEALTHYLAX) 3350 17 GM PACKET PO ONE (23:33)
[2024-01-12] MEDS: ERTAPENEM SODIUM 1 GM in SODIUM CHLORIDE 50 ML IVPB SCH (06:10)
[2024-01-13 15:55] VITALS: BP 115/62; PULSE 65; TEMP 98.4
== END 2024-01-13 20:42 | disposition home or self-care (01) | DRG 872 ==
LOC: JER 15:12 → JERBED 18:54 → J7W 21:20 → OBSVTOIN 22:33 → J7W 01-09 15:02
PROVIDERS: ADMIT Internal Medicine; ATTEND Internal Medicine
DX: A41.89 Other specified sepsis (principal); N39.0 Urinary tract infection, site not specified; E87.1 Hypo-osmolality and hyponatremia; N10 Acute pyelonephritis; Z16.12 Extended spectrum beta lactamase (ESBL) resistance; B96.20 Unspecified Escherichia coli [E. coli] as the cause of diseases classified elsewhere; R50.9 Fever, unspecified; E87.6 Hypokalemia; J06.9 Acute upper respiratory infection, unspecified; E83.39 Other disorders of phosphorus metabolism; E11.65 Type 2 diabetes mellitus with hyperglycemia
CPT/HCPCS: 0241U-QW; 36415; 36569; 36600; 70450-TC; 71046-TC-FY; 71250-TC; 76775-TC; 80048; 80053; 80061; 81003; 82803; 82962; 83036; 83605; 83735; 84100; 84443; 84484; 85025; 87040; 87086; 87186; 87899; 93005; 93010; 94640; 99285-25; G0378; J0131

== ENCOUNTER 2025-04-27 14:18 | Emergency (ER) | payer OTHER ==
[2025-04-27 14:35] VITALS: BP 133/78; PULSE 85; RESP 20; TEMP 98.2; BMI 31.3
[2025-04-27 15:28] LABS: EPI CELLS 11 /uL (0-25.1); HYALINE CASTS 1 /uL (0-3.1); URINE APPEARANCE CLEAR; URINE BACTERIA >9,000 /uL (0-1359); URINE BILIRUBIN NEGATIVE (NEGATIVE); URINE COLOR YELLOW; URINE GLUCOSE (UA) 3+ (NEGATIVE); URINE KETONE NEGATIVE (NEGATIVE); URINE LEUK ESTERASE NEGATIVE (NEGATIVE); URINE NITRITE POSITIVE (NEGATIVE); URINE PROTEIN NEGATIVE (NEGATIVE); URINE RBC 14 /uL (0-23.9); URINE UROBILINOGEN 0.2 mg/dL (0.2-1.0); URINE WBC 38 /uL (0-25.8)
[2025-04-27 16:47] LABS: ABSOLUTE IMMATURE GRANULOCYTES 0.02 x10^3/uL (0.0-0.031); BASOPHILS # 0.03 x10^3/uL (0.01-0.08); EOSINOPHIL % 1.4 % (0.7-5.8); EOSINOPHILS # 0.10 x10^3/uL (0.04-0.36); MCHC 32.7 g/dl (32.2-35.5); MEAN CELL VOLUME 82.6 fl (79.4-94.8); MEAN PLT VOLUME 10.5 fl (9.4-12.3); MONOCYTE # 0.48 x10^3/uL (0.24-0.86); MONOCYTE % 6.8 % (4.7-12.5); RDW 13.9 % (12.4-16.6)
[2025-04-27] MEDS ORDERED: ERTAPENEM SODIUM 1 GM VIAL ONE (17:00)
[2025-04-27] MEDS: ERTAPENEM SODIUM 1 GM in SODIUM CHLORIDE 50 ML IVPB ONE (17:07)
[2025-04-27 17:39] LABS: GLUCOSE,RANDOM 331 mg/dL (74-106); TOT PROT 10.3 g/dl (6.4-8.2)
[2025-04-27 17:40] LABS: CO2 20 mmol/L (21-32)
[2025-04-27 17:41] LABS: HCV DIAGNOSTIC IN-HOUSE W/RFLX NON-REACTIVE (NONREACTIVE); HIV INTERPRETATION NEGATIVE (NEGATIVE)
[2025-04-27 17:42] LABS: ALK PHOS 76 U/L (40-150)
[2025-04-27 17:45] LABS: CREATININE 0.29 mg/dL (0.55-1.3); SGOT/AST 141 U/L (5-34); SGPT/ALT 92 U/L (0-55)
[2025-04-27 19:00] LABS: GLUCOSE,RANDOM 267.0 mg/dL (74-106)
[2025-04-27 19:01] LABS: TOT PROT 7.9 g/dl (6.4-8.2)
[2025-04-27 19:02] LABS: CO2 24.0 mmol/L (21-32)
[2025-04-27 19:03] LABS: ALK PHOS 80.0 U/L (40-150)
[2025-04-27 19:06] LABS: CREATININE 0.42 mg/dL (0.55-1.3); SGOT/AST 73.0 U/L (5-34); SGPT/ALT 85.0 U/L (0-55)
== END 2025-04-27 20:34 | disposition left against medical advice (07) ==
LOC: JER 14:18
DX: N39.0 Urinary tract infection, site not specified (principal); R30.0 Dysuria; R10.24 Suprapubic pain; R35.0 Frequency of micturition; R94.31 Abnormal electrocardiogram [ECG] [EKG]
CPT/HCPCS: 36415; 80053; 81003; 83605; 85025; 86803; 87040; 87086; 87389; 93005; 93010; 99284-25